=== PATIENT | male | born 1940 | race American Indian/Alaskan Native ===

== ENCOUNTER 2017-05-31 11:24 | Outpatient (CLI) | payer MEDICARE ==
--- NOTE | 2017-06-10 12:21 | Magnetic Resonance Report ---
MR angiogram was performed of the intracranial circulation 3-D [id number] spoiled grass images were obtained of the intracranial circulation. The images of the carotid arteries showed no areas of occlusion or aneurysmal dilatation. The vertebro basilar system was also patent but with some mild irregularity suggestive of atherosclerotic disease in the basilar artery. The right vertebral ended in the PICA, a normal variation. The left posterior cerebral artery filled from the carotid. Impression: Normal MR angiogram of the intracranial circulation except for some irregularity in the basilar artery suggestive of atherosclerotic disease
--- NOTE | 2017-06-10 12:33 | Magnetic Resonance Report ---
MR angiography is performed of the great vessels of the neck 2-D time of flight spoiled grass images were obtained of the great vessels of the neck. Images of the carotid circulation showed both carotids to be patent without any evidence of occlusive disease. 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
--- NOTE | 2017-06-10 12:40 | Magnetic Resonance Report ---
MR scan of the cranium was performed without contrast. Pulse sequences included: 1. T1 weighted sagittal and axial images without contrast 2. T2 weighted axial and coronal images 3. FLAIR axial images 4. Diffusion-weighted axial images 5. Apparent diffusion coefficient images Views of the posterior fossa showed a normal craniocervical junction. Cerebellar pontine angles were normal with normal seventh-eighth nerve complexes. Brainstem was normal. The cerebellum showed occasional areas of increased signal in the right cerebellar hemisphere. The ventricular system showed no dilatation or distortion. Diffusion weighted images show an area of increased signal in the left posterior middle cerebral artery distribution with accompanying decreased perfusion. Moderate white matter changes were seen in the periventricular regions. Sinuses, flow voids in the [place] of [place], orbits, pituitary and basal ganglia were normal. Impression: Abnormal MR scan of the cranium without contrast. a. 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
== END 2017-05-31 11:25 | disposition home or self-care (01) ==
LOC: MRI 11:24
PROVIDERS: ATTEND Specialist
DX: I65.21 Occlusion and stenosis of right carotid artery (principal); I63.30 Cerebral infarction due to thrombosis of unspecified cerebral artery
CPT/HCPCS: 70544; 70547; 70551

== ENCOUNTER 2018-11-28 15:45 | Emergency (ER) | payer MEDICARE ==
[2018-11-28 16:49] VITALS: BP 178/82
[2018-11-28 17:01] LABS: Basophils # (Auto) 0.1 K/mm3 (0.0-0.1); Basophils % (Auto) 1.1 % (0.0-1.8); Eosinophils # (Auto) 0.2 K/mm3 (0.0-0.4); Eosinophils % (Auto) 4.9 % (0.0-4.3); Hematocrit 37.8 % (35.5-45.6); Hemoglobin 12.4 gm/dl (11.8-15.2); Lymphocytes # (Auto) 1.8 K/mm3 (1.2-5.4); Lymphocytes % (Auto) 41.6 % (13.4-35.0); Mean Corpuscular HGB Conc 33 % (32-34); Mean Corpuscular Volume 85 fl (84-94); Monocytes # (Auto) 0.6 K/mm3 (0.0-0.8); Monocytes % (Auto) 13.2 % (0.0-7.3); Platelet Count 176 K/mm3 (140-440); Red Blood Count 4.45 M/mm3 (3.65-5.03); Red Cell Distribution Width 19.2 % (13.2-15.2)
--- NOTE | 2018-11-28 17:16 | XRay Report ---
CHEST 2 VIEWS INDICATION / CLINICAL INFORMATION: edema. Dyspnea COMPARISON: None available. FINDINGS: SUPPORT DEVICES: None. HEART / MEDIASTINUM: No significant abnormality. LUNGS / PLEURA: No significant pulmonary or pleural abnormality. No pneumothorax. ADDITIONAL FINDINGS: No significant additional findings. IMPRESSION: 1. No acute findings. Signer Name: Guy Oquendo MD Signed: 11/28/2018 5:12 PM Workstation Name: [id number]
[2018-11-28 17:27] LABS: Calcium 8.7 mg/dL (8.4-10.2)
== END 2018-11-28 20:40 | disposition left against medical advice (07) ==
LOC: ED 15:45
DX: M79.89 Other specified soft tissue disorders (principal); Z53.21 Procedure and treatment not carried out due to patient leaving prior to being seen by health care provider
CPT/HCPCS: 36415; 71046; 80048; 83880; 85025